=== PATIENT | male | born 1990 | race Caucasian/White ===

== ENCOUNTER 2019-11-07 10:04 | Emergency (ER) | payer BC ==
[~2019-11-07] VITALS: Ht 177.8 cm; Wt 97.7 kg
[2019-11-07 10:06] VITALS: BP 174/103
[2019-11-07] MEDS ORDERED: BENZ-16 PO (10:26)
--- NOTE | 2019-11-07 10:32 | NUR ---
[employer] nasal swab collected send to lab.
--- NOTE | 2019-11-09 09:12 | NUR ---
Called and informed patient of negative COVID swab.
== END 2019-11-07 10:39 | disposition home or self-care (01) ==
LOC: ER 10:05
DX: J06.9 Acute upper respiratory infection, unspecified (principal); Z20.828 Contact with and (suspected) exposure to other viral communicable diseases; Z79.899 Other long term (current) drug therapy
CPT/HCPCS: 36415; 87635; 99283